=== PATIENT | female | born 1970 | race Caucasian/White ===

== ENCOUNTER 2025-09-10 07:21 | Day surgery (SDC) | payer OTHER ==
[~2025-09-10] VITALS: Ht 152.4 cm; Wt 82.7 kg
[~2025-09-10 07:21] MED LIST: BCP; DIAZ5 PO; OXYACE5T PO
[2025-09-10] MEDS ORDERED: METO50 (07:37)
[2025-09-10] MEDS ORDERED: Cyclobenzaprine5 MG (07:38)
[2025-09-10] MEDS ORDERED: TRAZ50 (07:40)
[2025-09-10 09:36] VITALS: BP 118/70
== END 2025-09-10 09:43 | disposition home or self-care (01) ==
LOC: ORSCSDS 07:21
PROVIDERS: Internal Medicine Gastroenterology
PROC: 0DBK8ZX Excision of Ascending Colon, Via Natural or Artificial Opening Endoscopic, Diagnostic (ICD-10-PCS; principal; 2025-09-10 08:45)
PROC: 0DBH8ZX Excision of Cecum, Via Natural or Artificial Opening Endoscopic, Diagnostic (ICD-10-PCS; principal; 2025-09-10 08:45)
DX: Z12.11 Encounter for screening for malignant neoplasm of colon (principal); D12.0 Benign neoplasm of cecum; D12.3 Benign neoplasm of transverse colon; K63.5 Polyp of colon; K64.4 Residual hemorrhoidal skin tags; R19.5 Other fecal abnormalities; G47.33 Obstructive sleep apnea (adult) (pediatric); E66.9 Obesity, unspecified; Z68.35 Body mass index [BMI] 35.0-35.9, adult
CPT/HCPCS: 88305; J2704; J7120